=== PATIENT | female | born 1975 | race Caucasian/White ===

== ENCOUNTER → 2017-07-30 | Outpatient (CLI) | payer OTHER ==
[~2017-07-30] MED LIST: LIDOCAINE 1%, 20ML ONE
== END | disposition home or self-care (01) ==
LOC: RAD 09:44
PROVIDERS: ATTEND Family Medicine
DX: E04.1 Nontoxic single thyroid nodule (principal); E05.90 Thyrotoxicosis, unspecified without thyrotoxic crisis or storm
CPT/HCPCS: 76942; 88112; 88173; J3490

== ENCOUNTER → 2017-12-14 | Outpatient (CLI) | payer OTHER ==
[~2017-12-14] MED LIST changes: +GADOBUTROL 10 MMOL/10 ML VIAL ONE; -LIDOCAINE 1%, 20ML ONE
== END | disposition home or self-care (01) ==
LOC: CFH 15:00
PROVIDERS: ATTEND Psychiatry & Neurology Neurology
DX: E05.00 Thyrotoxicosis with diffuse goiter without thyrotoxic crisis or storm (principal); H53.2 Diplopia; H05.823 Myopathy of extraocular muscles, bilateral
CPT/HCPCS: 70480; 70543; A9585